=== PATIENT | female | born 1985 | race Caucasian/White ===

== ENCOUNTER 2018-07-17 14:16 | Inpatient (IN) ==
[2018-07-17] MEDS ORDERED: Metoclopramide 10 MG/2 ML VIAL IVP ONE (14:27)
[2018-07-17] MEDS ORDERED: CeFAZolin Premix DUPLEX 2,000 MG/50 ML BAG IVPB ONE (14:27)
[2018-07-17] MEDS ORDERED: Famotidine 20 MG/2 ML VIAL IVP ONE (14:27)
[2018-07-17] MEDS ORDERED: Ringers Solution, Lactated 1,000 ML IVC SCH (14:30)
[2018-07-17 15:08] LABS: Amphetamine Screen,Urine Negative ng/mL (Cutoff=1000); Barbiturate Screen,Urine Negative ng/mL (Cutoff=200); Benzodiazepines Screen,Urine Negative ng/mL (Cutoff=200); Cannabinoid Screen,Urine Negative ng/mL (Cutoff = 50); Cocaine Screen,Urine Negative ng/mL (Cutoff= 300); Opiate Screen,Urine Negative ng/mL (Cutoff=300); Phencyclidine Screen,Urine Negative ng/mL (Cutoff=25)
[2018-07-17 15:09] LABS: Basophils # 0.1 K/mcL (0.0-0.2); Basophils % 0.3 %; Eosinophils # 0.1 K/mcL (0.0-0.6); Eosinophils % 0.3 %; Hematocrit 39.6 % (35.3-44.9); Hemoglobin 13.3 g/dL (11.5-15.4); Immature Granulocytes % 0.9 % (0-4); Mean Corpuscular HGB Conc 33.6 g/dL (31.6-35.5); Mean Corpuscular Hemoglobin 30.4 pg (28.0-33.3); Mean Corpuscular Volume 90.6 fL (83.0-100.0); Monocytes # 0.6 K/mcL (0.0-1.3); Monocytes % 3.6 %; Neutrophils # 13.7 K/mcL (1.6-8.9); Platelet Count 304 K/mcL (140-400); Red Blood Count 4.37 M/mcL (3.82-4.97); Red Cell Distribution Width 12.8 % (11.5-14.5); Segmented Neutrophils % 77.9 %
--- NOTE | 2018-07-17 16:03 | OB/GYN History & Physical ---
Date of Encounter: 07/17/18 Time of Encounter: 16:00 Assessment and Plan (1) 35 weeks gestation of Current visit: Yes Status: Acute (2) Previous delivery, antepartum Current visit: No Status: Acute (3) labor in third trimester with delivery Current visit: Yes Status: Acute Qualifiers: Fetus number: single or unspecified fetus Qualified Code(s): O60.14X0 - labor third trimester with delivery third trimester, not applicable or unspecified History of Present Illness Chief complaint: labor HPI: Ms. Hoffman is a 32 year old female presents to labor and delivery in labor. Patient hernandez every 2 minutes. Patient was hydrated. Contractions did not stop. Patient states her contractions began at 6 AM this morning. She was voiding on her to come home from work in [place]. On presentation patient has been hernandez every 2 minutes. She was hydrated and there is been no decrease in contraction strength. Patient continues to breathe through them. She denies any other complaints. She denies water breaking. Patient states that she has not dilated for a any of the 3 previous sections. She has no drug allergies. She is currently on Valtrex for herpes. She has no chronic medical conditions. Surgical history includes 3 previous sections and surgery on a deviated nasal septum. She also has a history of a diagnostic laparoscopy with lysis of adhesions, lap her skull with umbilical hernia repair, tonsillectomy adenoidectomy. Socially she denies tobacco, alcohol, illicit drug use. 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 Family history is significant for diabetes, hypertension, thyroid disease and asthma. Patient's maternal grandmother with colon cancer. Obstetric history significant for 3 term deliveries via section. First was for herpes. Patient is scheduled for repeat section and tubal ligation. Consent forms have been signed. Past Med Surg Social Fam HX - Past Medical History Medical history: no medical history Psychiatric history: no psych history - Past Surgical History Surgical History: , herniorrhaphy Additional surgical history: x3, T&A, diagnostic lap - Social History Smoking Status: Former smoker Smokeless Tobacco Status: No Alcohol use: none Drug use: none - Family History Mother Adopted: No Family Member Ethnicity: Non- Living Status: Still Living Hx Family Cardiac Disorders: No Hx Family Respiratory Disorders: No Hx Family Cancer: No Hx Family GI Disorders: No Hx Family Endocrine Disorder: Yes (thyroid disease) Hx Family Neuromuscular Disorders: No Hx Family Neurologic Disorders: No Hx Family HEENT Disorders: No Hx Family Autoimmune Disorders: Yes Hx Family Medical Disorders: Yes (no significant history) Obstetrical History - Pregnancies : 4 Para: 3 Term: 3 Livin Medications and Allergies Vit/Iron Fumarate/FA [ Tablet] 1 tab PO DAILY 02/27/16 [History] Ferrous Sulfate 1 tab PO BID 07/17/18 [History] Metoclopramide [Reglan] 10 mg PO Q6HR 07/17/18 [History] Ranitidine HCl [Heartburn Relief] 150 mg PO DAILY 07/17/18 [History] Allergy/AdvReac Type Severity Reaction Status Date / Time No Known Allergies Allergy Verified 01/10/16 15:27 Review of System OB All systems PM: reviewed and no additional remarkable complaints except as sta dilshad Exam - Constitutional Constitutional: well developed, well nourished, no acute distress, average body habitus, mild distress - HEENT HEENT: PERRL - Neck Neck exam: full ROM, normal inspection - Lungs Respiratory exam: CTAB - Cardiovascular Cardiovascular exam: RRR - Abdomen Abdomen: Present: bowel sounds normal, gravid, non tender - Extremities Extremities exam: full ROM - Cervix Dilation: 0 Effacement: 0 Station: -2 - Uterus Uterus exam: Present: normal size Results Result Diagrams: 07/17/18 14:27 Abnormal lab results WBC 17.6 K/mcL (4.3-11.1) H 07/17/18 14:27 Neutrophils # 13.7 K/mcL (1.6-8.9) H 07/17/18 14:27 All other labs normal.
--- NOTE | 2018-07-17 16:39 | Anesthesia Evaluation PreOp ---
Date of Encounter: 07/17/18 Time of Encounter: 16:37 - Past History Planned Operation: Repeat + BPS Cardiac History: Denies any Significant Hx Pulmonary History: Denies Any Significant HX, Former smoker, Smoking Cessation (quit in 2014) MANAGER RADIO History: Other (chronic lower back pain stemming from falling down the [employer] tairs) Other Medical History: GERD Anesthesia History: No Prior Anesthetic Complications (denies personal and family h/o GA complications), Problems (PDPH with a single shot spinal; other 2 spinals were without incident) : Yes Alcohol Use: none Drug use: none Medications and Allergies Vit/Iron Fumarate/FA [ Tablet] 1 tab PO DAILY 02/27/16 [History] Ferrous Sulfate 1 tab PO BID 07/17/18 [History] Metoclopramide [Reglan] 10 mg PO Q6HR 07/17/18 [History] Ranitidine HCl [Heartburn Relief] 150 mg PO DAILY 07/17/18 [History] Allergy/AdvReac Type Severity Reaction Status Date / Time No Known Allergies Allergy Verified 01/10/16 15:27 - Meds/Allergy Pre-op Review Medications Reviewed: Yes Allergies Reviewed: Yes Beta Blockers on Current Med List: No Anesthesia Results - Labs 07/17/18 14:27 Anesthesia Exam O2 Sat Height 1.68 m NPO (# of Hours): solids > 8hrs Pain Scale: 3 Pain Scale Used: Negro-Bustillo (Faces) - HEENT Pupil (Motor): Pupils equal Mallampati: II Teeth: Normal Oral Opening: Greater than 3 - MANAGER RADIO LOC: Oriented MANAGER RADIO Motor: Normal RUE, Normal LUE, Normal RLE, Normal LLE, Normal Face MANAGER RADIO Sensory: Normal: RUE, LUE, RLE, LLE, Face - Cardiac Rhythm: Regular Murmur: None - Pulmonary Breath Sounds: bilateral Clear Respiratory Effort: Symmetrical Anesthesia Assess/Plan ASA Score: 2 Modified Malone Scale for Level of Consciousness: Cooperative, oriented, and tranquil Anesthetic Plan: Regional Autologous Blood: No Monitoring Plan: Standard Monitors Recovery Plan: PACU
--- NOTE | 2018-07-17 17:32 | Event Note ---
Date of Encounter: 07/17/18 Time of Encounter: 17:31 Patient presented to labor and delivery hernandez every 2 minutes. Patient has been hydrated over the afternoon. Patient's contractions spread out to every 4-5 minutes. Estimated this patient begins to walk the contractions pick right back up. She is breathing through these contractions. She states they are very strong. She does not know if she can tolerate this. This patient lives an hour from the hospital. We will continue to monitor her. heart rate category 1 tracing.
[2018-07-17] MEDS ORDERED: Bupivacaine/PF 0.75% in Dex 2 ML AMPUL INFILT ONE (17:55)
[2018-07-17] MEDS ORDERED: *HR* Morphine Sulfate/PF 10 MG/10 ML AMPUL ONE (17:56)
[2018-07-17] MEDS ORDERED: *HR* FentaNYL (PF) 100 MCG/2 ML VIAL ONE (17:57)
[2018-07-17] MEDS ORDERED: Lidocaine -MPF 1% 5 ML AMPUL ONE (17:58)
[2018-07-17] MEDS ORDERED: Ringers Solution, Lactated 1,000 ML ONE (18:21)
[2018-07-17] MEDS ORDERED: *HR* Oxytocin 10 UNIT/ML VIAL IM ONE (18:21)
[2018-07-17] MEDS ORDERED: Ondansetron 4 MG/2 ML VIAL IVP PRN ×2 (18:39→21:31)
[2018-07-17] MEDS ORDERED: Acetaminophen IV 1,000 MG/100 ML INFUS..BTL IVPB ONE (18:39)
[2018-07-17] MEDS ORDERED: Naloxone 0.4 MG/ML INJ IVP PRN ×2 (18:39→21:31)
[2018-07-17] MEDS ORDERED: *HR* Promethazine 25 MG/ML VIAL IVP PRN (18:39)
[2018-07-17] MEDS ORDERED: *HR* OxyCODONE Immed Rel 5 MG TABLET PO PRN (18:39)
[2018-07-17] MEDS ORDERED: *HR* HYDROmorphone 2 MG TABLET PO PRN (18:39)
--- NOTE | 2018-07-17 18:39 | Anesthesia Procedures ---
Date of Encounter: 07/17/18 Time of Encounter: 18:12 Procedures: Anesthesia - Epidural/Spinal Patient ID/Chart reviewed: Yes Patient examined: Yes OB Eval: Gestational age: 35 weeks 4 days OB Eval: : 4 OB Eval: Hx Para: 3 OB Eval: Contractions: Non-stressed pattern Consent Obtained: Yes Supplemental Oxygen: None/Room Air Site Prep: Aseptic Technique, Sterile prep and drape, Povidone-Iodine 1% Patient position: upright Local Anesthetic: Lidocaine 1% Amount of Local Anesthetic used: 3 Interspace Used: L3-L4 Loss of Resistance (JOVANY): No Blood: No CSF: Yes Paresthesia: No Spinal Needle Gauge: 25 (3.5" pencan needle) Spinal Dose: see anesthesia record Procedure: successful on 1st attempt; patient tolerated procedure well; VSS Vitals + FHT's: VSS; see anesthesia record for specific VS
--- NOTE | 2018-07-17 18:57 | Event Note ---
Date of Encounter: 07/17/18 Time of Encounter: 17:50 At this time contractions have increased every 2 minutes. Patient breathing and crying through her contractions. She does not feel she can continue this. We will proceed with section due to labor.
--- NOTE | 2018-07-17 18:59 | OB/GYN Procedure Note ---
Section - Date of procedure: 07/17/18 Preop diagnosis: desires repeat , desires sterilization, other Post-op diagnosis: same Procedure: repeat low transverse, bilateral tubal ligation Surgeon: Allen Duke Quantitated Blood Loss: 150 Was there an assistant portfolio manager present: Yes Conversion Man: aMrielos Hurtado Outboard Motorboat Rigger: Terence Esposito Anesthesia Type: Spinal section complications: none Disposition: PACU Specimens: Placenta, Cord blood, Right tube segment, Left tube segment - Infant (s) A Delivery Date: 07/17/18 Infant Delivery Time: 18:31 Presentation: breech, footling breech Route of delivery: breech extraction Gender: Female Viability: Viable Pounds: 5 Ounces: 8 Gram Weight: 2.49 kg at 1 minute: 8 at 5 minutes: 9 Shoulder Dystocia: not encountered Specimens collected: cord blood Placenta: complete extraction Cord: nuchal cord - Narrative Narrative: Sunil is a 32-year-old female presented to labor and delivery in labor. Patient has a history of 3 previous sections. Patient continued to contract. There was slow down and then picked up again. Patient was crying and breathing through her contractions. Because of this patient was taken to operating room for repeat section and tubal ligation at patient's request. Informed consent was obtained. Patient was taken to the operative eye in place she was given spinal anesthesia she was then prepped and draped in the usual sterile fashion. Once adequate analgesia was achieved a Pfannenstiel incision was made through patient's previous scar was carried sharply through subcutaneous taste and fatty tissue to the fascial layers reached. The fascia was then nicked in the midline incised bilaterally with Welch scissors. It was then dissected vertically for exposure. Rectus abdominis muscles creatures and separate the midline and the peritoneum sharply entered. This point the pelvic cavity was visualized. There were multiple adhesions which were taken down via sharp and blunt dissection. Once the bladder flap was taken down under the bladder flap there was an opening in the uterus itself measuring approximately 2 cm. The opening was extended and was found to be in double footling breech presentation. was delivered without difficulty. The cried upon delivery cord was cut to cut the was passed immediately to the NICU team in attendance. Cord bloods obtained. Placenta was delivered via uterine massage. Placenta will be sent to pathology. The uterus was then delivered. Uterine lavage was performed. The incision was then closed the Vicryl suture running locking fashion. There was excellent hemostasis. The uterus was placed the pelvic cavity pelvic cavity was rinsed thoroughly with sterile water 2 hours cauterized. There was a small bleeder on the uterine incision which was stopped with 0 Vicryl suture in a [id number]. At this point the tubal ligation was performed. The right fallopian tube was located and followed to the fimbriated end. The midportion was grasped and an avascular portion of mesosalpinx was located. Through this piece of open sutures placed time with the proximal and distal portion of tube. A second piece of open sutures and placed time both edges together. The knuckle portion of tube was removed and the edges cauterized. The same procedure was then performed on the left to follow up to the fimbriated end. Midportion tubes and grasped. An avascular portion of mesosalpinx was located and through this a piece of open suture was then placed. The edges were then tied together. The knuckle portion of tube was held a second piece of open sutures were placed time with together. The knuckle portion of tube was removed. The edges were cauterized. At this point the pelvic cavity was rinsed thoroughly with sterile water times 2C no bleeding the procedure was terminated sponge needle and instrument counts correct 2. The fascia was then closed the Vicryl suture running nonlocking fashion. The suprafascial region of concern sterile water 2 all bleeders cauterized. The skin was closed luis manuel.
--- NOTE | 2018-07-17 19:55 | Anesthesia Evaluation Post Op ---
Date of Encounter: 07/17/18 Time of Encounter: 19:54 - Vital Signs Vital Signs: 108/43, HR 93, SpO2 98%, RR 16 - Lungs Lungs: Clear Ascult./Percussion - Airway Airway: Non-obstructed - Cardiovascular Regular Rate - Mental Status Mental Status: Alert & Oriented, Answers Appropriately - Pain Pain Scale: 0 Pain Scale used: Numeric (1 - 10) - Nausea Vomiting Nausea Vomiting: Not Present - Hydration Hydration: NPO, Camp catheter - Discharge PostOp Status: Transfer Patient to floor
[2018-07-17] MEDS ORDERED: Oxytocin 20 units/ LR 1000 mL 20 UNIT/1,000 ML BAG IVC ONE (20:54)
[2018-07-17] MEDS ORDERED: Sennosides 8.6 MG TABLET PO PRN (21:31)
[2018-07-17] MEDS ORDERED: Metoclopramide 10 MG/2 ML VIAL IVP PRN (21:31)
[2018-07-17] MEDS ORDERED: *HR* HYDROmorphone (PF) 1 MG/ML SYRINGE IVP PRN (21:31)
[2018-07-17] MEDS: ceFAZolin 1,000 MG in Water for inj. (sterile) 20 ML 10 ML IVP SCH (23:37)
[2018-07-17] MEDS: Ibuprofen 600 MG TABLET PO PRN (23:47)
[2018-07-18] MEDS: Acetaminophen 325 MG TABLET PO PRN ×3 (04:19→18:59)
[2018-07-18] MEDS: Oxytocin 20 units/ LR 1000 mL 20 UNIT/1,000 ML BAG IVC SCH ×2 (04:20→10:23)
--- NOTE | 2018-07-18 08:37 | OB/GYN Progress Note ---
Date of Encounter: 07/18/18 Time of Encounter: 08:35 - Assessment and Plan (1) Status post repeat low transverse section Current Visit: Yes Status: Acute Patient will be encouraged to ambulate use incentive spirometry. Subjective - Subjective Interval history: Patient is doing well this morning having minimal pain. Patient's tolerating diet well is hungry. Patient has been up catheter is out bleeding is slowing down. Patient encouraged to ambulate and to use her incentive spirometry throughout the day. Patient reports: voiding normally, ambulating normally [place]: doing well Objective - Vital Signs Latest vital signs: Vital Signs Temp Pulse Resp BP Pulse Ox 07/18/18 08:04 98.1 F 69 20 95/59 99 07/18/18 00:30 97.9 F 73 14 106/61 98 07/17/18 23:30 98.4 F 70 14 99/52 97 07/17/18 22:30 98.5 F 64 14 115/67 97 07/17/18 22:00 97.4 F L 77 18 112/69 99 07/17/18 21:40 96.4 F L 51 18 116/75 99 07/17/18 21:32 97.7 F 68 14 122/72 97 Intake and Output 07/17/18 07/18/18 07/18/18 23:59 07:59 15:59 Intake Total Output Total 350 / 350 350 / 350 Balance -340 / -340 -350 / -350 Intake: IV Fluids Ancef 1,000 MG In Water for inj . (sterile) 10 ML @ 200 mls/hr IVP Q8HR [facility] Rx#:[id number] Output: Urine 350 / 350 Catheter 350 / 350 Other: Weight 63.503 kg 64.864 kg Patient Weight 07/18/18 23:59 Weight 64.864 kg - Exam Lungs: bilateral: normal Chest: Normal S1, Normal S2 Extremities: Present: normal Abdomen: Present: normal appearance Incision: Present: normal, dry, intact Uterus: Present: normal - Labs Labs: Laboratory Results - last 24 hr 07/17/18 07/17/18 14:27 14:30 WBC 17.6 H RBC 4.37 Hgb 13.3 Hct 39.6 MCV 90.6 MCH 30.4 MCHC 33.6 RDW 12.8 Plt Count 304 MPV 10.0 Immature Gran % 0.9 Seg Neutrophils % 77.9 Lymphocytes % 17.0 Monocytes % 3.6 Eosinophils % 0.3 Basophils % 0.3 Neutrophils # 13.7 H Lymphocytes # 3.0 Monocytes # 0.6 Eosinophils # 0.1 Basophils # 0.1 Urine Opiates Screen Negative Ur Barbiturates Screen Negative Ur Phencyclidine Scrn Negative Ur Amphetamines Screen Negative U Benzodiazepines Scrn Negative Urine Cocaine Screen Negative U Marijuana (THC) Screen Negative Ur Drug Screen Interp See Below
[2018-07-18] MEDS: ceFAZolin 1,000 MG in Water for inj. (sterile) 20 ML 10 ML IVP SCH ×2 (08:49→15:50)
[2018-07-18] MEDS: Ibuprofen 600 MG TABLET PO PRN ×3 (08:50→20:35)
[2018-07-18] MEDS: Prenatal Vit/FA 1 EACH TABLET PO SCH (08:51)
[2018-07-18 09:42] LABS: Basophils % 0.2 %; Eosinophils # 0.1 K/mcL (0.0-0.6); Eosinophils % 0.7 %; Hematocrit 32.1 % (35.3-44.9); Immature Granulocytes % 0.8 % (0-4); Lymphocytes # 1.8 K/mcL (0.6-4.6); Lymphocytes % 14.5 %; Mean Corpuscular HGB Conc 35.2 g/dL (31.6-35.5); Mean Corpuscular Hemoglobin 31.9 pg (28.0-33.3); Mean Corpuscular Volume 90.7 fL (83.0-100.0); Monocytes # 0.8 K/mcL (0.0-1.3); Monocytes % 6.3 %; Neutrophils # 9.5 K/mcL (1.6-8.9); Platelet Count 238 K/mcL (140-400); Red Blood Count 3.54 M/mcL (3.82-4.97); Red Cell Distribution Width 12.9 % (11.5-14.5); Segmented Neutrophils % 77.5 %
[2018-07-18 09:43] LABS: Hemoglobin 11.3 g/dL (11.5-15.4)
[2018-07-18] MEDS: Simethicone 80 MG TAB.CHEW PO PRN ×2 (10:33→19:09)
[2018-07-18] MEDS: Lanolin 7 G OINT...G. TP PRN (11:50)
[2018-07-18] MEDS ORDERED: MOM Conc 10 ML UD.LIQ PO ONE (20:52)
[2018-07-19] MEDS: Acetaminophen 325 MG TABLET PO PRN ×3 (01:26→13:06)
[2018-07-19] MEDS: Ibuprofen 600 MG TABLET PO PRN (02:52)
[2018-07-19] MEDS: Prenatal Vit/FA 1 EACH TABLET PO SCH (08:01)
[2018-07-19] MEDS ORDERED: Ondansetron ODT 4 MG TAB.RAPDIS SL PRN (08:31)
[2018-07-19] MEDS ORDERED: Ringers Solution, Lactated 1,000 ML IVC ONE (08:37)
--- NOTE | 2018-07-19 08:43 | OB/GYN Progress Note ---
Date of Encounter: 07/19/18 Time of Encounter: 08:38 - Assessment and Plan (1) Status post repeat low transverse section Current Visit: Yes Status: Acute Continue routine post-op/ care Pain not well controlled - stop ibuprofen, insert peripheral IV, LR bolus, start toradol IV x 4 Anticipate discharge home tomorrow. POC per consult with Dr Duke (2) S/P tubal ligation Current Visit: Yes Status: Acute (3) History of opioid abuse Current Visit: Yes Status: Acute Subjective - Subjective Principal diagnosis: S/P RC/S and Tubal Interval history: S/P R C/S with tubal day 2 Pain is not well controlled; due to hx of drug abuse patient refusing narcotics. Currently nauseous - suspected due to uncontrolled pain VSS Ambulating without difficulty Voiding without difficulty Tolerating regular diet; passing flatus. and pumping Anticipate discharge home tomorrow Patient reports: appetite normal, voiding normally, ambulating normally, nauseated, no pain well controlled [place]: doing well, nursing well Objective - Vital Signs Latest vital signs: Vital Signs Temp Pulse Resp BP Pulse Ox 07/18/18 20:03 97.5 F L 65 16 107/60 99 07/18/18 16:18 98.3 F 80 20 101/64 97 07/18/18 13:26 17 07/18/18 12:19 98.3 F 68 20 107/62 97 07/18/18 08:56 17 Intake and Output 07/18/18 07/19/18 07/19/18 23:59 07:59 15:59 Intake Total 640 / 640 Output Total 800 / 800 Balance -160 / -160 Intake: Oral 240 / 240 Free Water 400 / 400 Output: Urine 800 / 800 Other: Meal Dinner Percent of Meal Consumed 100% Weight 65.771 kg Patient Weight 07/19/18 23:59 Weight 65.771 kg - Exam Lungs: bilateral: normal Chest: Normal S1, Normal S2 Extremities: Present: normal Abdomen: Present: normal appearance, soft. Absent: gravid, tenderness Incision: Present: normal, dry, intact Uterus: Present: normal, firm Fundal Height: 0 (@U) - Labs Labs: Laboratory Results - last 24 hr 07/18/18 04:00 WBC 12.2 H RBC 3.54 L Hgb 11.3 L D Hct 32.1 L MCV 90.7 MCH 31.9 MCHC 35.2 RDW 12.9 Plt Count 238 MPV 10.0 Immature Gran % 0.8 Seg Neutrophils % 77.5 Lymphocytes % 14.5 Monocytes % 6.3 Eosinophils % 0.7 Basophils % 0.2 Neutrophils # 9.5 H Lymphocytes # 1.8 Monocytes # 0.8 Eosinophils # 0.1 Basophils # 0.0
[2018-07-19] MEDS: Ketorolac 30 MG/ML VIAL IVP SCH ×3 (09:22→20:36)
[2018-07-19] MEDS: Simethicone 80 MG TAB.CHEW PO PRN ×2 (13:09→20:12)
[2018-07-19] MEDS: Lanolin 7 G OINT...G. TP PRN (20:11)
[2018-07-20] MEDS: Ketorolac 30 MG/ML VIAL IVP SCH (03:53)
[2018-07-20 07:53] VITALS: BP 109/63
--- NOTE | 2018-07-20 08:54 | Discharge Summary ---
Date of Encounter: 07/20/18 Time of Encounter: 10:19 - Discharge Diagnosis (1) History of opioid abuse Priority: Secondary Status: Acute (2) S/P tubal ligation Priority: Secondary Status: Acute (3) Status post repeat low transverse section Priority: Primary Status: Acute Comments: Pt meeting post-op milestones. She reports pain is now well controlled on Motrin and Tylenol. Pt declines any other pain medication for discharge including Toradol. She reports passing flatus but no BM. Discussed Colace and possibly milk of magnesia if needed. - Discharge Medications Prescriptions: Acetaminophen [Tylenol] 650 mg PO Q6HR PRN #30 tablet PRN Reason: Mild Pain Ibuprofen [Motrin] 600 mg PO Q6HR PRN #60 tab PRN Reason: Pain Docusate [Colace] 100 mg PO BID #60 capsule Home Medications: Vit/Iron Fumarate/FA [ Tablet] 1 tab PO DAILY 02/27/16 [History] Ferrous Sulfate 1 tab PO BID 07/17/18 [History] Acetaminophen [Tylenol] 650 mg PO Q6HR PRN #30 tablet 07/20/18 [Rx] Docusate [Colace] 100 mg PO BID #60 capsule 07/20/18 [Rx] Ibuprofen [Motrin] 600 mg PO Q6HR PRN #60 tab 07/20/18 [Rx] Simethicone [Gas-X] 80 mg PO TID PRN tab.chew 07/20/18 [Rx] Allergies/Adverse Reactions: Allergy/AdvReac Type Severity Reaction Status Date / Time No Known Allergies Allergy Verified 01/10/16 15:27 Data Procedures and tests throughout hospitalization: Laboratory Tests 07/17/18 07/17/18 07/18/18 14:27 14:30 04:00 WBC 17.6 H 12.2 H RBC 4.37 3.54 L Hgb 13.3 11.3 L D Hct 39.6 32.1 L MCV 90.6 90.7 MCH 30.4 31.9 MCHC 33.6 35.2 RDW 12.8 12.9 Plt Count 304 238 MPV 10.0 10.0 Immature Gran % 0.9 0.8 Seg Neutrophils % 77.9 77.5 Lymphocytes % 17.0 14.5 Monocytes % 3.6 6.3 Eosinophils % 0.3 0.7 Basophils % 0.3 0.2 Neutrophils # 13.7 H 9.5 H Lymphocytes # 3.0 1.8 Monocytes # 0.6 0.8 Eosinophils # 0.1 0.1 Basophils # 0.1 0.0 Urine Opiates Screen Negative Ur Barbiturates Screen Negative Ur Phencyclidine Scrn Negative Ur Amphetamines Screen Negative U Benzodiazepines Scrn Negative Urine Cocaine Screen Negative U Marijuana (THC) Screen Negative Ur Drug Screen Interp See Below Date of admission: 07/17/18 14:16 Primary care physician: Danny Joshi DO Discharging clinician: Kailyn Chirinos Anticipated date of discharge: 07/20/18 - Patient Status Disposition: Home, Self-Care Condition: Good Functional capacity at discharge: independent ambulation Overall status at discharge: patient is progressing back to baseline - Discharge Instructions Follow Up With: Danny Joshi DO [Primary Care Provider] - Danny Land MD [Partnered Physician] - - Diet and Activity Activity: increase activity as tolerated Diet: regular diet Hospital Course Reason for admission: labor Delivery: section Episiotomy: none Laceration: none Other procedures: tubal ligation complications: none Discharge diagnosis: delivery [place] baby: female Hospital course: - Date of procedure: 07/17/18 Preop diagnosis: desires repeat , desires sterilization, other Post-op diagnosis: same Procedure: repeat low transverse, bilateral tubal ligation Surgeon: Allen Hart Blood Loss: 150 Was there an carpenter's assistant present: Yes Screw Machine Set Up Operator: Marielos Hurtado Selling Manager: Terence Esposito Anesthesia Type: Spinal section complications: none Disposition: PACU Specimens: Placenta, Cord blood, Right tube segment, Left tube segment - Infant (s) A Infant Delivery Date: 07/17/18 Infant Delivery Time: 18:31 Presentation: breech, footling breech Route of delivery: breech extraction Gender: Female Viability: Viable Pounds: 5 Ounces: 8 Gram Weight: 2.49 kg at 1 minute: 8 at 5 minutes: 9 Shoulder Dystocia: not encountered Specimens collected: cord blood Placenta: complete extraction Cord: nuchal cord Time Attestation: Total time spent providing and/or coordinating discharge services: Time Spent: Less than 30 minutes - VTE Documentation of Mechanical Device: Intermittent pneumatic compression device Exam - Constitutional Vitals: Temp Pulse Resp BP Pulse Ox 98.2 F 61 16 109/63 98 07/20/18 07:52 07/20/18 07:52 07/20/18 07:52 07/20/18 07:52 07/19/18 20:00 General appearance IM: A&O X 3 - Respiratory Respiratory exam: Present: CTAB - Cardiovascular Cardiovascular exam IM: Present: RRR, +S1, +S2 - GI/Abdominal GI/Abdominal exam IM: soft, no peritoneal signs Incision: dry, intact - Uterine Tone: Firm - Extremities Exam Extremities exam IM: Present: pedal edema (mild bilaterally) - Neurological Exam Neurological exam: normal gait - Psychiatric Additional comments: reprts good mood
[2018-07-20] MEDS: Prenatal Vit/FA 1 EACH TABLET PO SCH (09:48)
[2018-07-20] MEDS: Acetaminophen 325 MG TABLET PO PRN (09:52)
== END 2018-07-20 18:09 | disposition home or self-care (01) | DRG 785 ==
LOC: 1NENULAB → OBSVTOIN 14:16 → 1NENULAB 14:43 → 1NENUOBS 21:30
PROVIDERS: ADMIT Advanced Practice Midwife; ATTEND Advanced Practice Midwife